=== PATIENT | male | born 1995 | race Hispanic/Latino ===

== ENCOUNTER → 2017-06-10 | Emergency (ER) | payer MEDICAID, OTHER ==
[~2017-06-10] VITALS: Ht 168.9 cm; Wt 81.8 kg
[2017-06-10 21:20] VITALS: BP 156/93; PULSE 65; RESP 17; O2SAT 99
[2017-06-10 23:20] LABS: BASOPHILS % (AUTO) 0.1 % (0-3); EOSINOPHILS % (AUTO) 0.1 % (0-5); MONOCYTES % (AUTO) 5.2 % (4-12); Mean Corpuscular Hemoglobin 30.6 pg (27.0-35.0); Mean Corpuscular Volume 83.7 fL (81-100); NEUTROPHILS % (AUTO) 65.2 % (40-74); Platelet Count 189 bil/L (150-400)
== END ==
LOC: SED 21:15
DX: F32.9 Major depressive disorder, single episode, unspecified (principal); R45.851 Suicidal ideations